=== PATIENT | female | born 1940 | race Caucasian/White ===

== ENCOUNTER 2017-05-12 18:10 | Emergency (ER) | payer MEDICARE ==
[2017-05-12 18:29] VITALS: BP 122/64
--- NOTE | 2017-05-12 18:51 | EDM.PDOC ---
[id number]: INFECTION ON LEG Time Seen by Provider: 05/12/17 18:35 Source of Information: Reports: Patient History Limitations: Reports: No Limitations - History of Present Illness INITIAL COMMENTS - FREE TEXT/NARRATIVE: 77-year-old female with a small red spot on her lower left leg that she wants looked at. She felt like she got "poked" about a week ago but still has a spot that's bothering her and is worried it might be a tick bite. No fevers or chills , no other symptoms. Onset: Unknown/Unsure (Over a week ago) Location: Reports: Lower Extremity, Left - Related Data Allergies Allergy/AdvReac Type Severity Reaction Status Date / Time latex Allergy Hives Verified 05/12/17 18:29 Home Meds: Home Meds NK [No Known Home Meds] 05/12/17 [History] Past Medical History [employer] History: Reports: Musculoskeletal History: Reports: Osteoporosis Dermatologic History: Reports: Eczema Social & Family History - Tobacco Use Smoking Status *Q: Never Smoker - Caffeine Use Caffeine Use: Reports: Coffee, Tea - Recreational Drug Use Recreational Drug Use: No ED ROS GENERAL - Review of Systems Review Of Systems: See Below Constitutional: Denies: Fever, Chills Respiratory: Denies: Shortness of Breath GI/Abdominal: Denies: Nausea, Vomiting Neurological: Denies: Headache ED EXAM, SKIN/RASH Exam: See Below Exam Limited By: No Limitations General Appearance: Alert, No Apparent Distress Respiratory/Chest: No Respiratory Distress Extremities: Other (Remainder of exam is limited to the lower extremities. The patient has a 1 cm wide erythematous macular lesion with a very small darkened center, nonblanching and nonpalpable. It is nontender.) Course - Vital Signs Last Recorded V/S: Last Vital Signs Temp 97.6 F 05/12/17 18:28 Pulse 76 05/12/17 18:28 Resp 16 05/12/17 18:28 BP 122/64 05/12/17 18:28 Pulse Ox 98 05/12/17 18:28 - Re-Assessments/Exams Free Text/Narrative Re-Assessment/Exam: 05/12/17 18:49 Recommended topical hydrocortisone, this is not infected and she has no symptoms of infection. He can be rechecked in another 4-5 days if not improving satisfactorily. Departure - Departure Time of Disposition: 19:06 Disposition: Home, Self-Care 01 Condition: Good Clinical Impression: Insect bite of lower leg with local reaction Qualifiers: Encounter type: initial encounter Laterality: left Qualified Code(s): S80.862A - Insect bite (nonvenomous), left lower leg, initial encounter - Discharge Information Instructions: Insect Bite, [id number] Referrals: PCP,None [Primary Care Provider] - Forms: ED Department Discharge Care Plan Goals: Topical 1% hydrocortisone 2 or 3 times a day for the next few days should speed up healing. Recheck in 4 or 5 days if not improving satisfactorily, sooner if worsening or concerns.
== END 2017-05-12 19:06 | disposition home or self-care (01) ==
LOC: JP.ED 18:10
DX: S80.862A Insect bite (nonvenomous), left lower leg, initial encounter (principal); W57.XXXA Bitten or stung by nonvenomous insect and other nonvenomous arthropods, initial encounter; Z91.040 Latex allergy status
CPT/HCPCS: 99282; 99283